=== PATIENT | female | born 1995 | race Caucasian/White ===

== ENCOUNTER → 2022-12-21 | Outpatient (CLI) | payer OTHER ==
--- NOTE | 2022-12-21 13:58 | Diagnostic Imaging Report ---
INDICATION: Anatomy scan. TECHNIQUE: Multiple real-time grayscale images were obtained over the gravid uterus. COMPARISON: None. FINDINGS: There is a single live IUP in a variable presentation. heart rate was recorded at 156 BPM. Placenta is posterior. No previa is detected. Amniotic fluid index is 8.4 cm. Cervical length is 9.1 cm. survey shows kidneys, bladder, and stomach to be unremarkable. brain is unremarkable. There is a four-chamber heart. There is a three-vessel cord with normal insertion. spine is unremarkable. Biometrical measurements are as follows: Biparietal 4.64 cm, age 20 weeks 1 days. Head circumference 17.36 cm, age 20 weeks 0 days. Abdominal circumference 15.36 cm, age 20 weeks 4 days. Femur length 3.58 cm, age 21 weeks 3 days. Sonographic estimate age: 20 weeks 4 days. Sonographic estimated date of delivery: 05/06/2023. Estimated Weight: 377 gm (+/- 55 gm). LMP percentile: 86%. heart rate: 156 beats per minute. number: 1 of 1. IMPRESSION: Single live IUP of 20 weeks 4 days gestational age. Estimated date of confinement sonographically is 05/06/2023. Dictated by: Dictated on workstation # [id number]
== END ==
LOC: RAD 09:21
PROVIDERS: ATTEND Nurse Practitioner Women's Health
DX: Z34.92 Encounter for supervision of normal pregnancy, unspecified, second trimester (principal); Z3A.20 20 weeks gestation of pregnancy
CPT/HCPCS: 76805